=== PATIENT | male | born 1990 | race Caucasian/White ===

== ENCOUNTER 2017-03-01 12:32 | Emergency (ER) | payer OTHER ==
[2017-03-01 12:50] VITALS: BP 138/90
--- NOTE | 2017-03-01 14:30 | UC ---
Altered Mental Status HPI - HPI Summary HPI Summary: Pt presents to with sister and fiance. Per report, pt was at [facility] on Wednesday afternoon. Pt was counting windows of his house in his mind when he lost "all my thoughts." Pt states he did not know his name, what he was trying to do, or where he was" Pt's aryacee states he told her what was going on (he knew who she was) - she states they stood and rested approx 10 minutes and symptoms gradually resolved. there was not loss of tone, no paresthesia, no changes to speech, word finding, or vision. Pt states since this time he has a stinging, pressure in left side of head. No analgesia. Pt states feels his thoughts have been slightly slower, but no forgetful episodes. Pt states does not have full recollection of events from Wednesday. Pt reports had 1/2 alcoholic drink on Wednesday evening. No illicit substances. Pt states called his PCP today who directed him to seek medical care. Pt states has had episodes of elevated BP - never treated. Pt is on medications for depression / anxiety - no changes to these doses. Pt denies trauma, fall. No h/o seizures. Pt's father with seizure d/o Pt's medications reviewed this visit. - History Of Current Complaint Chief Complaint: UCHeadache Stated Complaint: HEAD/MEMORY COMPLAINT Time Seen by Provider: 03/01/17 13:38 Hx Obtained From: Patient, Family/[employer] Driver Severity Currently: Mild Pain Intensity: 3 Character: Responsiveness - Sat 10/21 - 10min, fully resolved Aggravating Factor(s): Nothing Alleviating Factor(s): Nothing Associated Signs And Symptoms: Positive: Headache - Allergies/Home Medications Allergies/Adverse Reactions: Allergies Allergy/AdvReac Type Severity Reaction Status Date / Time nicotine patch Allergy Mild Rash Uncoded 03/01/17 12:50 bleach Allergy Hives Uncoded 03/01/17 12:50 PMH/Surg Hx/FS Hx/Imm Hx Previously Healthy: Yes - Surgical History Surgical History: Yes Surgery Procedure, Year, and Place: testicle surgery as a child - Family History Known Family History: Positive: Cardiac Disease, Hypertension, Diabetes - Social History Occupation: Employed Full-time Lives: With Family Alcohol Use: Rare Substance Use Type: None Smoking Status (MU): Heavy Every Day Tobacco Smoker Type: Cigarettes Amount Used/How Often: 1 PPD Length of Time of Smoking/Using Tobacco: 12 Years Have You Smoked in the Last Year: Yes Household Exposure Type: Cigarettes - Immunization History Most Recent Influenza Vaccination: February 2016 Review of Systems Constitutional: Negative Skin: Negative Eyes: Negative ENT: Negative Respiratory: Negative Cardiovascular: Negative Gastrointestinal: Negative Genitourinary: Negative Motor: Negative Neurovascular: Negative Musculoskeletal: Negative Neurological: Headache Psychological: Negative All Other Systems Reviewed And Are Negative: Yes Physical Exam Triage Information Reviewed: Yes Appearance: Well-Appearing, No Pain Distress, Well-Nourished Vital Signs: Initial Vital Signs Temp 97.5 F 03/01/17 12:43 Pulse 70 03/01/17 12:43 Resp 14 03/01/17 12:43 BP 138/90 03/01/17 12:43 Pulse Ox 98 03/01/17 12:43 Vital Signs Reviewed: Yes Eye Exam: Normal Eyes: Positive: Conjunctiva Clear ENT Exam: Normal ENT: Positive: Normal ENT inspection, Hearing grossly normal, Pharynx normal Dental Exam: Normal Neck exam: Normal Neck: Positive: Supple, Nontender, No Lymphadenopathy Respiratory Exam: Normal Respiratory: Positive: Chest non-tender, Lungs clear, Normal breath sounds, No respiratory distress, No accessory muscle use Cardiovascular Exam: Normal Cardiovascular: Positive: RRR, No Murmur, Other: - no bruits Abdominal Exam: Normal Abdomen Description: Positive: Nontender, No Organomegaly, Soft Bowel Sounds: Positive: Present Musculoskeletal Exam: Normal Neurological Exam: Normal Neurological: Positive: Other: - NIH=o CN 2-12 intact and full Full AROM ext x 4 + full, equal sensation b/l + FNF + heel lockhart no dysarthrua, dysmetria Psychological Exam: Normal Skin Exam: Normal AMS Course/Dx - Course Course Of Treatment: Pt presents s/p 10 min episode loss of thought on Sat - resolved without intervention. Pt with left sided headache since and slowed thought. d/w pt differential including sz, cva, tia, electrolyte changes. recommended further eval. Pt will go to [facility] by private vehicle - d/w pt no driving - finacee to drive. d/w pt may been seen or referred by neurology - pt comfortable and in agreement with plan - Differential Dx/Clinical Impression Provider Diagnoses: episode of altered mentation -resolved Discharge - Discharge Plan Condition: Stable Disposition: OTHER Discharge Disposition Comment: pt to [facility] by private vehicle Patient Education Materials: Altered Mental Status (ED) Referrals: Tristin Scott PA [Primary Care Provider] - Additional Instructions: The doctor that evaluated you today recommends you go to the emergency department for further evaluation of your confusion and forgetful episode. It is recommended you go directly there - they will expecting you. If your symptoms or return of you have any concerns- felt puller and contact 911 for transport.
== END 2017-03-01 14:29 ==
LOC: UCCORT 12:32
DX: R41.82 Altered mental status, unspecified (principal); R51 Headache; F17.210 Nicotine dependence, cigarettes, uncomplicated
CPT/HCPCS: 99212; G0463

== ENCOUNTER 2017-03-01 15:51 | Emergency (ER) | payer OTHER ==
--- NOTE | 2017-03-01 18:06 | RAD ---
INDICATION: Altered mental status COMPARISON: None TECHNIQUE: Noncontrast axial source images were acquired from the skull base to the vertex. FINDINGS: Ventricles/sulci: The ventricles and cisterns are normal in size and configuration for age. 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 Intracranial hemorrhage:None. Extra-axial spaces: There are no abnormal extra axial fluid collections or evidence of extra-axial mass. Calvarium: There is no calvarial fracture or other calvarial abnormality. Scalp: There is no evidence of scalp or extracalvarial soft tissue abnormality. Paranasal sinuses/mastoid: The paranasal sinuses and mastoid air cells are clear. Other: None. IMPRESSION: No acute intracranial findings
[2017-03-01 20:28] LABS: Hematocrit 48 % (42-52); Hemoglobin 17.2 g/dl (14.0-18.0); Mean Corpuscular HGB Conc 35 g/dl (31-36); Mean Corpuscular Hemoglobin 32 pg (27-31); Mean Corpuscular Volume 89 fL (80-94); Mean Platelet Volume 7 um3 (7.4-10.4); Red Blood Count 5.43 10^6/ul (4.0-5.4); Red Cell Distribution Width 13 % (10.5-15)
[2017-03-01 20:30] LABS: Comments Flag Yes
[2017-03-01 20:36] LABS: Albumin 4.5 g/dL (3.2-5.2); BUN/Creatinine Ratio 12.3 (8-20); Calcium 9.8 mg/dL (8.6-10.3); EGFR African American 163.4 (>60); Globulin 3.2 g/dL (2-4); Potassium 3.9 mmol/L (3.5-5.0); Total Bilirubin 0.5 mg/dL (0.2-1.0); Total Protein 7.7 g/dL (6.4-8.9)
[2017-03-01 21:05] LABS: TSH (Thyroid Stimulating Horm) 1.79 mcIU/mL (0.34-5.60)
[2017-03-01 21:11] LABS: Urine Bilirubin Negative (Negative); Urine Glucose Negative (Negative); Urine Nitrite Negative (Negative)
[2017-03-01 21:22] LABS: Benzodiazepine Urine Screen None Detected (None Detect)
--- NOTE | 2017-03-01 22:27 | ED ---
Yvonne King Thomas, scribed for Simon Morrell on 03/01/17 at 2049 . Complex/Multi-Sys Presentation - HPI Summary HPI Summary: The pt is a 27 y/o M referred from [facility] after he experienced a 15-minute episode two days ago in which he was alert but not oriented. The patient reports that he was in [place] with his family when he lost all sense of who I was and where I was. This episode spontaneously resolved. Pt denies CP, SOB, abd pain, and fever. PMHx includes HTN. The patient denies any recent drug use. FHx includes seizure. The patient is accompanied by two family members. 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 Onset/Duration: Lasting Minutes - 15-minute episode of symptoms two days ago, Resolved Location: Negative Aggravating Factor(s): None Alleviating Factor(s): Spontaneous resolution Associated Signs And Symptoms: Negative: SOB, Chest Pain, Abdominal Pain, Fever - Allergies/Home Medications Allergies/Adverse Reactions: Allergies Allergy/AdvReac Type Severity Reaction Status Date / Time nicotine patch Allergy Mild Rash Uncoded 03/01/17 12:50 bleach Allergy Hives Uncoded 03/01/17 12:50 PMH/Surg Hx/FS Hx/Imm Hx Previously Healthy: No Endocrine/Hematology History: Denies: Hx Diabetes Cardiovascular History: Reports: Hx Hypertension - not medicated - Surgical History Surgery Procedure, Year, and Place: testicle surgery as a child Infectious Disease History: No Infectious Disease History: Denies: Traveled Outside the [place] in Last 30 Days - Family History Known Family History: Positive: Cardiac Disease, Hypertension, Diabetes, Other - Seizure - Social History Alcohol Use: Rare Substance Use Type: Reports: None Hx Tobacco Use: Yes Smoking Status (MU): Heavy Every Day Tobacco Smoker Type: Cigarettes Amount Used/How Often: 1 PPD Length of Time of Smoking/Using Tobacco: 12 Years Have You Smoked in the Last Year: Yes Review of Systems Negative: Fever Negative: Chest Pain Negative: Shortness Of Breath Negative: Abdominal Pain Neurological: Other - Episode in which he was alert but not oriented All Other Systems Reviewed And Are Negative: Yes Physical Exam - Summary Physical Exam Summary: Appearance: Well appearing, no pain distress, obese Skin: warm, dry, reflects adequate perfusion Head/face: normal Eyes: EOMI, TONYA ENT: normal Neck: supple, nontender Respiratory: CTA, breath sounds present Cardiovascular: RRR, pulses symmetrical Abdomen: nontender, soft Bowel: present Musculoskeletal: normal, strength/ROM intact Neuro: normal, sensory motor intact, A&Ox3 Triage Information Reviewed: Yes Vital Signs On Initial Exam: Initial Vitals Temp Pulse Resp BP Pulse Ox 97.5 F 88 20 141/87 97 03/01/17 15:57 03/01/17 15:57 03/01/17 15:57 03/01/17 15:57 03/01/17 15:57 Vital Signs Reviewed: Yes - Harpreet Coma Scale Coma Scale Total: 15 Diagnostics - Vital Signs Vital Signs Temp Pulse Resp BP Pulse Ox 03/01/17 20:03 98.1 F 65 16 158/83 97 03/01/17 15:57 97.5 F 88 20 141/87 97 - Laboratory Lab Results: Lab Results 03/01/17 03/01/17 03/01/17 Range/Units 20:00 20:00 20:00 WBC 11.0 H (3.5-10.8) 10^3/ul RBC 5.43 H (4.0-5.4) 10^6/ul Hgb 17.2 (14.0-18.0) g/dl Hct 48 (42-52) % MCV 89 (80-94) fL MCH 32 H (27-31) pg MCHC 35 (31-36) g/dl RDW 13 (10.5-15) % Plt Count 271 (150-450) 10^3/ul MPV 7 L (7.4-10.4) um3 Neut % (Auto) 49.7 (38-83) % Lymph % (Auto) 37.9 (25-47) % Wheeler % (Auto) 9.3 H (1-9) % Eos % (Auto) 2.5 (0-6) % Baso % (Auto) 0.6 (0-2) % Absolute Neuts (auto) 5.4 (1.5-7.7) 10^3/ul Absolute Lymphs (auto) 4.1 (1.0-4.8) 10^3/ul Absolute Monos (auto) 1.0 H (0-0.8) 10^3/ul Absolute Eos (auto) 0.3 (0-0.6) 10^3/ul Absolute Basos (auto) 0.1 (0-0.2) 10^3/ul Absolute Nucleated RBC 0.01 10^3/ul Nucleated RBC % 0 Sodium 136 (133-145) mmol/L Potassium 3.9 (3.5-5.0) mmol/L Chloride 101 (101-111) mmol/L Carbon Dioxide 29 (22-32) mmol/L Anion Gap 6 (2-11) mmol/L BUN 9 (6-24) mg/dL Creatinine 0.73 (0.67-1.17) mg/dL Est GFR ( Amer) 163.4 (>60) Est GFR (Non-Af Amer) 127.0 (>60) BUN/Creatinine Ratio 12.3 (8-20) Glucose 92 (70-100) mg/dL Lactic Acid 1.3 (0.5-2.0) mmol/L Calcium 9.8 (8.6-10.3) mg/dL Total Bilirubin 0.50 (0.2-1.0) mg/dL AST 30 (13-39) U/L ALT 48 (7-52) U/L Alkaline Phosphatase 52 (34-104) U/L Troponin I 0.00 (<0.04) ng/mL Total Protein 7.7 (6.4-8.9) g/dL Albumin 4.5 (3.2-5.2) g/dL Globulin 3.2 (2-4) g/dL Albumin/Globulin Ratio 1.4 (1-3) TSH Pending Result Diagrams: 03/01/17 20:00 03/01/17 20:00 Lab Statement: Any lab studies that have been ordered have been reviewed, and results considered in the medical decision making process. - CT CT Brain CT Interpretation: No Acute Changes - No acute intracranial findings. BANG veras has reviewed this report and agrees. CT Interpretation Completed By: Radiologist Complex Multi-Symp Course/Dx Assessment/Plan: The pt is a 27 y/o M referred from [facility] after he experienced a 15-minute episode two days ago in which he was alert but not oriented. This episode spontaneously resolved. Bloodwork, UA, and CT Brain were obtained. I consulted with Dr. Almaraz, neurology, who advises outpatient follow-up. The patient was instructed not to drive until cleared by neurology. - Diagnoses Differential Diagnoses/HQI/PQRI: CVA, Other - seizures Provider Diagnoses: Amnesia, Rule out absence seizures - Physician Notifications Discussed Care Of Patient With: Andry Almaraz Time Discussed With Above Provider: 22:04 Instructed by Provider To: Other - I consulted with Dr. Almaraz, neurology, who advises outpatient follow-up and the patient be advised not to drive until followup. Discharge - Discharge Plan Condition: Stable Disposition: HOME Referrals: Andry Almaraz MD [Medical Doctor] - 2 Days Additional Instructions: Follow up with Dr. Almaraz, neurology, in the next few days. DO NOT DRIVE UNTIL YOU ARE CLEARED BY A NEUROLOGIST. The documentation as recorded by the Yvonne flores Thomas accurately reflects the service I personally performed and the decisions made by me, Simon Morrell.
[2017-03-01 23:09] VITALS: BP 122/99
== END 2017-03-01 23:12 | disposition home or self-care (01) ==
LOC: ED 15:51
DX: R41.3 Other amnesia (principal); I10 Essential (primary) hypertension; F17.210 Nicotine dependence, cigarettes, uncomplicated; E66.9 Obesity, unspecified
CPT/HCPCS: 36415; 70450; 80053; 80307; 81003; 83605; 84443; 84484; 85025; 99283

== ENCOUNTER 2017-07-15 16:31 | Emergency (ER) | payer OTHER ==
[2017-07-15 16:50] VITALS: BP 134/78
--- NOTE | 2017-07-15 17:00 | UC ---
Respiratory Complaint HPI - HPI Summary HPI Summary: cough for 3 weeks, no fever or SOB - History of Current Complaint Chief Complaint: UCRespiratory Stated Complaint: COUGH Time Seen by Provider: 07/15/17 16:53 Hx Obtained From: Patient Onset/Duration: Gradual Onset, Lasting Weeks - 3, Still Present Timing: Constant Severity Currently: None Pain Intensity: 0 Character: Cough: Nonproductive Aggravating Factors: Nothing Alleviating Factors: Nothing Associated Signs And Symptoms: Positive: URI - Allergies/Home Medications Allergies/Adverse Reactions: Allergies Allergy/AdvReac Type Severity Reaction Status Date / Time nicotine patch Allergy Mild Rash Uncoded 07/15/17 16:50 bleach Allergy Hives Uncoded 07/15/17 16:50 Home Medications: Home Medications Cholecalciferol TAB* [Vitamin D TAB*] 400 unit PO DAILY 07/15/17 [History Confirmed 07/15/17] Lisinopril/HCTZ 20/12.5(NF) [Zestoretic 20/12.5(NF)] 1 tab PO DAILY 07/15/17 [ History Confirmed 07/15/17] Omeprazole CAP* [Prilosec CAP* 20 MG] 20 mg PO DAILY 07/15/17 [History Confirmed 07/15/17] guaiFENesin ER TAB [Mucinex*] 600 mg PO BID 07/15/17 [History Confirmed 07/15/17 ] PMH/Surg Hx/FS Hx/Imm Hx Previously Healthy: No Cardiovascular History: Hypertension GI/ History: Gastroesophageal Reflux Psychological History: Depression - Surgical History Surgical History: Yes Surgery Procedure, Year, and Place: testicle surgery as a child - Family History Known Family History: Positive: Cardiac Disease, Hypertension, Diabetes, Other - Seizure - Social History Occupation: Student Lives: With Family Alcohol Use: Rare Substance Use Type: None Smoking Status (MU): Heavy Every Day Tobacco Smoker Type: Cigarettes Amount Used/How Often: 1 PPD Length of Time of Smoking/Using Tobacco: 12 Years Have You Smoked in the Last Year: Yes Household Exposure Type: Cigarettes - Immunization History Most Recent Influenza Vaccination: February 2016 Review of Systems Constitutional: Negative Skin: Negative Eyes: Negative ENT: Negative Respiratory: Cough Cardiovascular: Negative Gastrointestinal: Negative Genitourinary: Negative Motor: Negative Neurovascular: Negative Musculoskeletal: Negative Neurological: Negative Psychological: Negative Is Patient Immunocompromised?: No All Other Systems Reviewed And Are Negative: Yes Physical Exam Triage Information Reviewed: Yes Appearance: Well-Appearing, No Pain Distress, Obese Vital Signs: Initial Vital Signs Temp 97.9 F 07/15/17 16:45 Pulse 74 07/15/17 16:45 Resp 16 07/15/17 16:45 BP 134/78 07/15/17 16:45 Pulse Ox 99 07/15/17 16:45 Vital Signs Reviewed: Yes Eye Exam: Normal Eyes: Positive: Conjunctiva Clear ENT Exam: Normal ENT: Positive: Normal ENT inspection, Hearing grossly normal, Pharynx normal. Negative: Nasal congestion, TMs normal, Tonsillar swelling, Tonsillar exudate, Trismus, Muffled voice, Hoarse voice Neck exam: Normal Neck: Positive: Supple, Nontender Respiratory Exam: Normal Respiratory: Positive: Chest non-tender, Lungs clear, Normal breath sounds, No respiratory distress, No accessory muscle use Cardiovascular Exam: Normal Cardiovascular: Positive: RRR, No Murmur, Pulses Normal, Brisk Capillary Refill Musculoskeletal Exam: Normal Musculoskeletal: Positive: Strength Intact, ROM Intact, No Edema Neurological Exam: Normal Neurological: Positive: Alert, Muscle Tone Normal Psychological Exam: Normal Skin Exam: Normal UC Diagnostic Evaluation - Laboratory O2 Sat by Pulse Oximetry: 99 Respiratory Course/Dx - Course Course Of Treatment: albuterol, tessalon, zithromax if not improving follow with pcp - Differential Dx/Diagnosis Provider Diagnoses: Bronchitis with bronchospastic cough.. Discharge - Discharge Plan Condition: Stable Disposition: HOME Prescriptions: Albuterol HFA INHALER* [Ventolin HFA Inhaler*] 2 puff INH Q4H PRN #1 mdi PRN Reason: cough and chest congestion Azithromycin TAB* [Zithromax TAB (Z-OG) 250 mg #6 tabs] 2 tab PO .TODAY, THEN 1 DAILY #1 og Benzonatate CAP* [Tessalon 100 MG CAP*] 100 - 200 mg PO TID PRN #40 cap PRN Reason: cough Patient Education Materials: Acute Bronchitis (ED), Acute Cough (ED) Referrals: Tristin Scott PA [Primary Care Provider] - If Needed
== END 2017-07-15 17:09 | disposition home or self-care (01) ==
LOC: UCCORT 16:31
DX: J40 Bronchitis, not specified as acute or chronic (principal); R05 Cough; I10 Essential (primary) hypertension; K21.9 Gastro-esophageal reflux disease without esophagitis; F17.210 Nicotine dependence, cigarettes, uncomplicated; F32.9 Major depressive disorder, single episode, unspecified
CPT/HCPCS: 99211; G0463

== ENCOUNTER 2018-01-20 19:25 | Emergency (ER) | payer OTHER ==
[2018-01-20 21:17] VITALS: BP 135/66
[2018-01-20] MEDS ORDERED: Amoxicillin PO (*) 250 MG CAP PO ONE (22:26)
[2018-01-20] MEDS ORDERED: Amoxicillin PO (*) 500 MG CAP PO ONE (22:27)
--- NOTE | 2018-01-20 22:29 | UC ---
Respiratory Complaint HPI - HPI Summary HPI Summary: Patient is a 27-year-old male with a chronic cough. States he often gets bronchitis. For the past few weeks she has had some sinus discomfort and a lot of postnasal drip. His left ear now hurts. He has no fever or chills. Denies any chest pain or shortness of breath. - History of Current Complaint Chief Complaint: UCGeneralIllness Stated Complaint: COUGH/NO VOICE Time Seen by Provider: 01/20/18 22:18 Hx Obtained From: Patient Onset/Duration: Gradual Onset, Lasting Weeks Timing: Constant Severity Initially: Mild Severity Currently: Moderate Pain Intensity: 5 Pain Scale Used: 0-10 Numeric Character: Cough: Nonproductive Aggravating Factors: Nothing Alleviating Factors: Nothing Associated Signs And Symptoms: Positive: URI, Nasal Congestion, Hoarseness, Sinus Discomfort - Allergies/Home Medications Allergies/Adverse Reactions: Allergies Allergy/AdvReac Type Severity Reaction Status Date / Time nicotine patch Allergy Mild Rash Uncoded 01/20/18 21:12 bleach Allergy Hives Uncoded 01/20/18 21:12 Home Medications: Home Medications Acetaminophen [Tylenol Extra Strength] 1,500 mg PO DAILY 01/20/18 [History Confirmed 01/20/18] PMH/Surg Hx/FS Hx/Imm Hx Previously Healthy: Yes Endocrine History: Dyslipidemia Cardiovascular History: Hypertension - Surgical History Surgical History: Yes Surgery Procedure, Year, and Place: testicle surgery as a child - Family History Known Family History: Positive: Cardiac Disease, Hypertension, Diabetes, Other - Seizure - Social History Alcohol Use: Rare Substance Use Type: None Smoking Status (MU): Heavy Every Day Tobacco Smoker Type: Cigarettes Amount Used/How Often: 1 PPD Length of Time of Smoking/Using Tobacco: 12 Years Have You Smoked in the Last Year: Yes Household Exposure Type: Cigarettes - Immunization History Most Recent Influenza Vaccination: February 2016 Review of Systems Constitutional: Negative Skin: Negative Eyes: Negative ENT: Ear Ache, Nasal Discharge, Sinus Congestion, Sinus Pain/Tenderness Respiratory: Cough Cardiovascular: Negative Gastrointestinal: Negative Genitourinary: Negative Motor: Negative Neurovascular: Negative Musculoskeletal: Negative Neurological: Negative Psychological: Negative Is Patient Immunocompromised?: No All Other Systems Reviewed And Are Negative: Yes Physical Exam Triage Information Reviewed: Yes Appearance: Well-Appearing, No Pain Distress, Well-Nourished Vital Signs: Initial Vital Signs Temp 97.4 F 01/20/18 21:07 Pulse 75 01/20/18 21:07 Resp 19 01/20/18 21:07 BP 135/66 01/20/18 21:07 Pulse Ox 99 01/20/18 21:07 Vital Signs Reviewed: Yes Eyes: Positive: Conjunctiva Clear ENT: Positive: Hearing grossly normal, Nasal congestion, TM bulging - l, TM red - l, Sinus tenderness. Negative: Nasal drainage, Trismus, Muffled voice, Hoarse voice Neck: Positive: Supple, Nontender Respiratory: Positive: Lungs clear, Normal breath sounds, No respiratory distress Cardiovascular: Positive: RRR, No Murmur Musculoskeletal: Positive: ROM Intact, No Edema Neurological: Positive: Alert Psychological Exam: Normal Skin Exam: Normal UC Diagnostic Evaluation - Laboratory O2 Sat by Pulse Oximetry: 99 - NORMAL/NOT HYPOXIC Respiratory Course/Dx - Differential Dx/Diagnosis Provider Diagnoses: LEFT OTITIS MEDIA. POST NASAL DRIP. CHRONIC COUGH Discharge - Sign-Out/Discharge Documenting (check all that apply): Patient Departure All imaging exams completed and their final reports reviewed: No Studies - Discharge Plan Condition: Stable Disposition: HOME Prescriptions: Amoxicillin PO (*) [Amoxicillin 875 MG (*)] 875 mg PO BID #20 tab Fluticasone NASAL SPRAY 50MCG* [Flonase NASAL SPRAY 50MCG*] 2 spray BOTH NARES BID #1 btl Patient Education Materials: Ear Infection (ED), Postnasal Drip (DC) Referrals: Tristin Scott PA [Primary Care Provider] - 1 Week (IF NOT MARKEDLY IMPROVED ) - Billing Disposition and Condition Condition: STABLE Disposition: Home
== END 2018-01-20 22:36 | disposition home or self-care (01) ==
LOC: UCCORT 19:25
DX: H66.92 Otitis media, unspecified, left ear (principal); R09.82 Postnasal drip; R05 Cough; I10 Essential (primary) hypertension; F17.210 Nicotine dependence, cigarettes, uncomplicated
CPT/HCPCS: 99212; A9270-GY; G0463

== ENCOUNTER 2018-07-18 12:20 | Emergency (ER) | payer BC ==
[2018-07-18 14:14] VITALS: BP 146/81
--- NOTE | 2018-07-18 14:23 | UC ---
UC General HPI - HPI Summary HPI Summary: pt c/o abdominal pain with nausea and vomiting x1 since early this am. no diarrhea. - History of Current Complaint Chief Complaint: UCAbdominalPain Stated Complaint: STOMACH ACHE,VOMITING Time Seen by Provider: 07/18/18 14:16 Hx Obtained From: Patient Timing: Constant Pain Intensity: 5 Aggravating: movement Associated Signs & Symptoms: Positive: Abdominal Pain, Nausea, Vomiting. Negative: Diarrhea, Fever - Allergy/Home Medications Allergies/Adverse Reactions: Allergies Allergy/AdvReac Type Severity Reaction Status Date / Time nicotine patch Allergy Mild Rash Uncoded 07/18/18 14:06 bleach Allergy Hives Uncoded 07/18/18 14:06 Home Medications: Home Medications Losartan/Hydrochlorothiazide [Losartan Potassium/Hydroc 100-12.5 mg] 1 tab PO DAILY 07/18/18 [History Confirmed 07/18/18] PMH/Surg Hx/FS Hx/Imm Hx Cardiovascular History: Hypertension Psychological History: Depression - Surgical History Surgical History: Yes Surgery Procedure, Year, and Place: testicle surgery as a child - Family History Known Family History: Positive: Cardiac Disease, Hypertension, Diabetes, Other - Seizure - Social History Alcohol Use: None Substance Use Type: None Smoking Status (MU): Light Every Day Tobacco Smoker Type: Cigarettes Amount Used/How Often: 2 cigarettes daily Length of Time of Smoking/Using Tobacco: 12 Years Have You Smoked in the Last Year: Yes Household Exposure Type: Cigarettes - Immunization History Most Recent Influenza Vaccination: February 2016 Review of Systems All Other Systems Reviewed And Are Negative: Yes Constitutional: Negative: Fever Gastrointestinal: Positive: Abdominal Pain, Vomiting, Nausea. Negative: Diarrhea Genitourinary: Positive: Other - No testicular pain. Negative: Dysuria Physical Exam Triage Information Reviewed: Yes Appearance: Well-Appearing Vital Signs: Initial Vital Signs Temp 97.4 F 07/18/18 14:08 Pulse 82 07/18/18 14:08 Resp 18 07/18/18 14:08 BP 146/81 07/18/18 14:08 Pulse Ox 97 07/18/18 14:08 Vital Signs Reviewed: Yes Eyes: Positive: Conjunctiva Clear ENT: Positive: Pharynx normal, TMs normal. Negative: Nasal congestion, Nasal drainage Neck: Positive: Supple, Nontender Respiratory: Positive: Lungs clear, Normal breath sounds, No respiratory distress Cardiovascular: Positive: RRR, No Murmur Abdomen Description: Positive: Other: - Hyperactive BS, soft, tender RUQ, no mass, no hsm or cva tenderness.. Negative: Pulsatile Mass Musculoskeletal: Positive: ROM Intact Neurological: Positive: Alert Psychological: Positive: Age Appropriate Behavior Skin Exam: Normal Course/Dx - Course Course Of Treatment: [facility] called and report given to Marko Jules NP. advised coming via car for RUQ abdominal pain and nausea with vx1. - Differential Dx - Multi-Symptom Differential Diagnoses: Other - viral illness, hepatobiliary pathology. pancreatic pathology - Diagnoses Provider Diagnosis: RUQ abdominal pain Discharge - Sign-Out/Discharge Documenting (check all that apply): Patient Departure All imaging exams completed and their final reports reviewed: No Studies - Discharge Plan Condition: Stable Disposition: TRANS HIGHER LVL OF CARE FAC Referrals: Tristin Scott PA [Primary Care Provider] - Additional Instructions: LEAVE HERE AND GO DIRECTLY TO THE ER DISCUSSED - Billing Disposition and Condition Condition: STABLE Disposition: Trans Higher Lvl of Care Fac - Attestation Statements Provider Attestation: Per institutional requirements, I have reviewed the chart, however, I was not consulted specifically or made aware of this patient by the midlevel provider. I did not personally evaluate, interact with , or disposition this patient.
== END 2018-07-18 14:28 | disposition short-term general hospital (02) ==
LOC: UCCORT 12:20
DX: R10.11 Right upper quadrant pain (principal); R11.2 Nausea with vomiting, unspecified; I10 Essential (primary) hypertension; F17.210 Nicotine dependence, cigarettes, uncomplicated; Z79.899 Other long term (current) drug therapy; Z91.09 Other allergy status, other than to drugs and biological substances
CPT/HCPCS: 99212; G0463

== ENCOUNTER 2019-06-11 11:31 | Emergency (ER) | payer BC, OTHER ==
[2019-06-11 14:22] VITALS: BP 163/87
--- NOTE | 2019-06-11 14:40 | UC ---
General HPI - HPI Summary HPI Summary: Here with family who have been diagnosed with the flu Cough and congestion off and on for the past several days. Today had bodyaches. COncerned he has the flu as well. Works with IDD population. Worried about getting them sick. No fever. Chronic diarrhea. Has used inhalers in the past - has not needed it during this illness. Appetite adequate Took his BP pills today. Meds Reviewed - History of Current Complaint Chief Complaint: UCGeneralIllness Stated Complaint: COUGH, CONGESTION Time Seen by Provider: 06/11/19 14:33 Pain Intensity: 4 - Allergy/Home Medications Allergies/Adverse Reactions: Allergies Allergy/AdvReac Type Severity Reaction Status Date / Time nicotine patch Allergy Mild Rash Uncoded 06/11/19 14:22 bleach Allergy Hives Uncoded 06/11/19 14:22 Home Medications: Home Medications Naproxen Sodium [Naproxen 220 mg] 220 mg PO BID PRN 06/11/19 [History Confirmed 06/11/19] PMH/Surg Hx/FS Hx/Imm Hx Previously Healthy: Yes Cardiovascular History: Hypertension - Surgical History Surgical History: Yes Surgery Procedure, Year, and Place: testicle surgery as a child. gallbladder, - Family History Known Family History: Positive: Cardiac Disease, Hypertension, Diabetes, Other - Seizure - Social History Alcohol Use: Occasionally Substance Use Type: None Smoking Status (MU): Heavy Every Day Tobacco Smoker Type: Cigarettes Amount Used/How Often: 3/4 PPD Length of Time of Smoking/Using Tobacco: 12 Years Have You Smoked in the Last Year: Yes Household Exposure Type: Cigarettes - Immunization History Most Recent Influenza Vaccination: February 2016 Review of Systems All Other Systems Reviewed And Are Negative: Yes Constitutional: Positive: Chills ENT: Positive: Sinus Congestion Respiratory: Positive: Cough Gastrointestinal: Positive: Diarrhea Physical Exam Triage Information Reviewed: Yes Appearance: Well-Appearing Vital Signs: Initial Vital Signs Temp 97.5 F 06/11/19 14:15 Pulse 67 06/11/19 14:15 Resp 16 06/11/19 14:15 BP 163/87 06/11/19 14:15 Pulse Ox 98 06/11/19 14:15 Vital Signs Reviewed: Yes Eyes: Positive: Conjunctiva Clear ENT: Positive: Pharyngeal erythema, Nasal congestion, TMs normal Neck: Positive: Supple, Nontender Respiratory: Positive: Lungs clear, Decreased breath sounds Cardiovascular: Positive: RRR, No Murmur Course/Dx - Course Course Of Treatment: This is a 29 yr old with with URI s/s Flu: Negative Plan Your flu swab was negative Recommend tylenol and/or ibuprofen as needed for pain/fever Can do a trial of over the counter anticough or decongestant as needed for symptoms as directed If symptoms persist or worsen, recommend follow up with PCP or return to urgent care Recommend rechecking your blood pressure, if it remains elevated, follow up with your PCP - Diagnoses Provider Diagnosis: Viral syndrome Discharge ED - Sign-Out/Discharge Documenting (check all that apply): Patient Departure All imaging exams completed and their final reports reviewed: No Studies - Discharge Plan Condition: Good Disposition: HOME Patient Education Materials: Viral Syndrome (ED) Referrals: Tristin Scott PA [Primary Care Provider] - Additional Instructions: Your flu swab was negative Recommend tylenol and/or ibuprofen as needed for pain/fever Can do a trial of over the counter anticough or decongestant as needed for symptoms as directed If symptoms persist or worsen, recommend follow up with PCP or return to urgent care Recommend rechecking your blood pressure, if it remains elevated, follow up with your PCP - Billing Disposition and Condition Condition: GOOD Disposition: Home
[2019-06-11 14:53] LABS: Influenza A Molecular Negative (Negative); Influenza B Molecular Negative (Negative)
== END 2019-06-11 15:18 | disposition home or self-care (01) ==
LOC: UCCORT 11:31
DX: B34.9 Viral infection, unspecified (principal); R05 Cough; R09.81 Nasal congestion; R19.7 Diarrhea, unspecified; I10 Essential (primary) hypertension; F17.210 Nicotine dependence, cigarettes, uncomplicated; R68.83 Chills (without fever); Z91.09 Other allergy status, other than to drugs and biological substances
CPT/HCPCS: 99211; G0463